=== PATIENT | female | born 1945 | race Caucasian/White ===

== ENCOUNTER 2016-08-04 14:56 | Emergency (ER) | payer MEDICARE, MEDICAID ==
[~2016-08-04] VITALS: Ht 160 cm; Wt 59.5 kg
[2016-08-04 15:16] VITALS: Ht 160 cm; Wt 59.5 kg
[2016-08-04] MEDS ORDERED: LEVO25TA50 PO (16:21)
[2016-08-04] MEDS ORDERED: ALLO100T PO (16:21)
[2016-08-04] MEDS ORDERED: ALBUTEROL 0.5% (NEB) 2.5 MG/0.5 ML AMP INH STA (16:21)
[2016-08-04] MEDS ORDERED: SOD CHLORIDE 0.9% 1,000 ML IV STA (16:21)
[2016-08-04] MEDS ORDERED: LEVO500T10 PO (16:22)
[2016-08-04] MEDS ORDERED: METO-429 PO (16:24)
[2016-08-04] MEDS ORDERED: FURO40TA4 PO (16:25)
[2016-08-04] MEDS ORDERED: APIX5TAB PO (16:25)
--- NOTE | 2016-08-04 17:23 | RADRPT ---
PROCEDURE: XR Chest. CLINICAL INDICATION: Shortness of breath. TECHNIQUE: Single frontal view. COMPARISON: None. FINDINGS: There is interstitial disease bilaterally consistent with pulmonary edema. The lungs are otherwise clear. The heart is enlarged. There is calcification in the aorta consistent with atherosclerosis. There is no pleural effusion. There is no pneumothorax. IMPRESSION: 1. Pulmonary edema. 2. Cardiomegaly and atherosclerosis. 3. Otherwise normal chest x-ray. RPTAT: QQ .Alexey Velazquez MD, MD Date Time Electronically viewed and signed by .Alexey Velazquez MD, MD on 08/04/2016 17:22 .R/
[2016-08-04 17:36] LABS: BASOPHIL # 0.1 10^3/ul (0.0-0.1); BASOPHILS % 1.2 % (0.0-2.0); EOSINOPHILS # 0.1 10^3/ul (0.0-0.5); EOSINOPHILS % 0.9 % (0.0-7.0); HEMATOCRIT 28.7 % (37.0-47.0); HEMOGLOBIN 9.4 g/dl (12.0-16.0); LYMPHOCYTES # 1.2 10^3/ul (0.8-2.9); LYMPHOCYTES % 18.1 % (15.0-51.0); MEAN CORPUSCULAR HEMOGLOBIN 29.2 pg (29.0-33.0); MEAN CORPUSCULAR HGB CONC 32.9 g/dl (32.0-37.0); MEAN CORPUSCULAR VOLUME 88.6 fl (82.0-101.0); MONOCYTE # 0.5 10^3/ul (0.3-0.9); MONOCYTES % 6.8 % (0.0-11.0); NEUTROPHIL # 4.9 10^3/ul (1.6-7.5); PLATELET COUNT 148 10^3/UL (140-440); RED BLOOD COUNT 3.23 10^6/ul (4.20-5.40); RED CELL DISTRIBUTION WIDTH 19.2 % (11.5-14.5); UNCORRECTED WBC 6.7 10^3/ul (4.8-10.8); WHITE BLOOD COUNT 6.7 10^3/ul (4.8-10.8)
[2016-08-04 17:41] LABS: INR 1.2; PARTIAL THROMBOPLASTIN TIME 40.6 Sec (25.0-35.0); PROTIME 15.3 Sec (12.2-14.2); PT RATIO 1.2
[2016-08-04 17:43] LABS: ALBUMIN 4.2 g/dl (3.3-4.9); CHLORIDE 99 mmol/L (97-110)
[2016-08-04 17:44] LABS: POTASSIUM 4.4 mmol/L (3.5-5.1); SODIUM 141 mmol/L (135-144)
[2016-08-04 17:46] LABS: ALBUMIN/GLOBULIN RATIO 1.13; ALKALINE PHOSPHATASE 176 IU/L (42-121); ANION GAP 20 (8-16); ASPARTATE AMINO TRANSFERASE 33 IU/L (15-46); BILIRUBIN,INDIRECT 0.6 mg/dl (0-1.1); BILIRUBIN,TOTAL 0.6 mg/dl (0.2-1.3); CARBON DIOXIDE 26 mmol/L (21-31); CREATININE 0.91 mg/dl (0.44-1.00); TOTAL PROTEIN 7.9 g/dl (6.1-8.1)
[2016-08-04 17:47] LABS: ALANINE AMINOTRANSFERASE 35 IU/L (13-69); BLOOD UREA NITROGEN 35 mg/dl (7-20); CALCIUM 8.7 mg/dl (8.4-10.2); GLUCOSE 106 mg/dl (70-220)
[2016-08-04 17:56] LABS: B-TYPE NATRIURETIC PEPTIDE 477 PG/ML (0-125)
[2016-08-04 18:00] LABS: TROPONIN-I < 0.010 ng/ml (0.00-0.12)
[2016-08-04] MEDS ORDERED: IOHEXOL 300MG/ML 150 ML BTL ONE (18:13)
[2016-08-04] MEDS ORDERED: SOD CHLORIDE 0.9% 100 ML ONE (18:13)
[2016-08-04 18:21] LABS: CONDITION 1; LH ANALYZER COMMENTS 1; SUSPECT 1
[2016-08-04] MEDS ORDERED: FUROSEMIDE 40 MG INJ IV ONE (18:30)
--- NOTE | 2016-08-04 20:37 | ERD ---
ER Documentation Chief Complaint Date/Time DATE: 08/04/16 TIME: 20:33 Chief Complaint cough x 2 weeks (KASIETORREY) HPI Patient is a 71-year-old female who presents with cough, congestion, and shortness of breath. The cough is productive of clear mucus. She denies any chest pain, fever, sore throat, or otalgia. She does complain of some mild dyspnea on exertion with orthopnea. She denies any edema, or calf pain. She denies any chest trauma, recent travel, or hemoptysis. She saw her primary care physician who gave her Levaquin. She is taking the Levaquin 2 days without any improvement in her symptoms. (TORREY JARAMILLO) ROS All systems reviewed and are negative except as per history of present illness. (TORREY JARAMILLO) Medications Home Meds Active Scripts Benzonatate* (Tessalon Perle*) 100 Mg Capsule, 100 MG PO Q8H Y for COUGH, #14 CAP Prov:LUCINA PALOMINO DO 08/05/16 Hydrocodone-Chlorpheniramine Polis* (Hydrocodone-Chlorpheniramine Polis*) 10-8MG /5ML Stephany.er.12h, 5 ML PO Q12H Y for COUGH, #60 ML 0 Refills Prov:RADHA JARAMILLOA 08/04/16 Benzonatate* (Tessalon Perle*) 100 Mg Capsule, 100 MG PO Q8H Y for COUGH, #30 CAP 0 Refills Prov:RADHA JARAMILLOA 08/04/16 Potassium Chloride* (K-Dur*) 10 Meq Tab.prt.sr, 10 MEQ PO DAILY, #20 TAB 0 Refills Prov:TORREY JARAMILLO 08/04/16 Furosemide* (Lasix*) 20 Mg Tablet, 20 MG PO DAILY for 7 Days, #20 TAB 0 Refills Prov:KASIETORREY 08/04/16 Reported Medications Apixaban* (Eliquis*) 5 Mg Tablet, 5 MG PO BID, TAB 08/04/16 Furosemide* (Furosemide*) 40 Mg Tablet, 40 MG PO DAILY, TAB 08/04/16 Metoprolol Tartrate* (Lopressor*) 50 Mg Tab, 50 MG PO BID, #60 TAB 08/04/16 Levofloxacin* (Levofloxacin*) 500 Mg Tablet, 500 MG PO DAILY, TAB STARTED 08-03-16 FOR 5 DAYS 08/04/16 Allopurinol* (Allopurinol*) 100 Mg Tablet, 100 MG PO DAILY, TAB 08/04/16 Levothyroxine Sodium* (Levoxyl*) 25 Mcg Tablet, 25 MCG PO BEFORE BREAKFAST, #30 TAB 08/04/16 Allergies Allergies: Coded Allergies: No Known Allergy (Unverified , 08/04/16) PMhx/Soc History of Surgery: Yes (abd hernia repair) Anesthesia Reaction: No Hx Neurological Disorder: No Hx Respiratory Disorders: No Hx Cardiac Disorders: Yes (CHF, HTN, AFIB) Hx Psychiatric Problems: No Hx Miscellaneous Medical Probl: Yes (FIBROMYALGIA) Hx Alcohol Use: No Hx Substance Use: No Hx Tobacco Use: No Smoking Status: Never smoker (TORREY JARAMILLO) FmHx Family History: No diabetes (TORREY JARAMILLO) Physical Exam Vitals Vital Signs Date Time Temp Pulse Resp B/P Pulse Ox O2 Delivery O2 Flow Rate FiO2 08/04/16 23:53 81 22 99 21 08/04/16 23:30 94 22 110/76 100 Room Air 08/04/16 22:35 100 18 98/83 100 Room Air 08/04/16 21:00 85 18 140/59 100 Room Air 08/04/16 20:30 85 21 111/65 100 Room Air 08/04/16 19:57 83 18 77/65 100 Room Air 08/04/16 17:41 78 20 110/70 98 Room Air 08/04/16 16:53 79 20 99 21 08/04/16 15:16 98.3 74 20 122/57 99 (LUCINA PALOMINO DO) Physical Exam Const: Well-developed well-nourished female sitting on the bed with no respiratory distress noted Head: Atraumatic Eyes: Normal Conjunctiva ENT: Normal External Ears, Nose and Mouth. Neck: Full range of motion..~ No meningismus. Resp: Clear to auscultation bilaterally, with no rales or crackles noted. Patient is not tachypneic nor does she have any retractions, nasal flaring, or prolonged expiratory phase noted. She speaks in full sentences without difficulty. Cardio: Regular rate and rhythm, no murmurs Abd: Soft, non tender, non distended. Normal bowel sounds Skin: No petechiae or rashes Back: No midline or flank tenderness Ext: No cyanosis, or edema Neur: Awake and alert oriented 3, GCS equals 15 Psych: Normal Mood and Affect (TORREY JARAMILLO) Result Diagram: 08/04/16 1705 08/04/16 1705 Results 24 hrs Laboratory Tests Test 08/04/16 17:05 08/04/16 21:30 Activated Partial Thromboplast Time 40.6Sec Alanine Aminotransferase (ALT/SGPT) 35IU/L Albumin 4.2g/dl Albumin/Globulin Ratio 1.13 Alkaline Phosphatase 176IU/L Anion Gap 20 Aspartate Amino Transf (AST/SGOT) 33IU/L B-Type Natriuretic Peptide 477PG/ML Basophils # 0.110^3/ul Basophils % 1.2% Blood Morphology Comment Blood Urea Nitrogen 35mg/dl Calcium Level 8.7mg/dl Carbon Dioxide Level 26mmol/L Chloride Level 99mmol/L Creatinine 0.91mg/dl Differential Comment AUTO w/SCAN Direct Bilirubin 0.00mg/dl Eosinophils # 0.110^3/ul Eosinophils % 0.9% Globulin 3.70g/dl Glucose Level 106mg/dl Hematocrit 28.7% Hemoglobin 9.4g/dl INR International Normalized Ratio 1.20 Indirect Bilirubin 0.6mg/dl Lactic Acid Level 3.2mmol/L 1.1mmol/L Lymphocytes # 1.210^3/ul Lymphocytes % 18.1% Mean Corpuscular Hemoglobin 29.2pg Mean Corpuscular Hemoglobin Concent 32.9g/dl Mean Corpuscular Volume 88.6fl Mean Platelet Volume 9.0fl Monocytes # 0.510^3/ul Monocytes % 6.8% Neutrophils # 4.910^3/ul Neutrophils % 73.0% Nucleated Red Blood Cells # 0.010^3/ul Nucleated Red Blood Cells % 0.0/100WBC Platelet Count 03796^3/UL Potassium Level 4.4mmol/L Prothrombin Time 15.3Sec Prothrombin Time Ratio 1.2 Red Blood Count 3.2310^6/ul Red Cell Distribution Width 19.2% Sodium Level 141mmol/L Total Bilirubin 0.6mg/dl Total Protein 7.9g/dl Troponin I < 0.010ng/ml White Blood Count 6.710^3/ul Current Medications Medications (Trade) Dose Ordered Sig/Kailyn Route PRN Reason Start Time Stop Time Status Last Admin Dose Admin Sodium Chloride (NS) 1,000 ml @ 1,000 mls/hr Q1H STAT IV 08/04/16 16:21 08/04/16 17:20 DC 08/04/16 17:43 Albuterol (Proventil 0.5% (Neb)) 5 mg ONCE STAT INH 08/04/16 16:21 08/04/16 16:25 DC 08/04/16 16:49 IV Flush 10 ml 10 ml STK-MED ONCE .ROUTE 08/04/16 18:13 08/04/16 18:14 DC 08/04/16 22:00 Sodium Chloride (NS) 100 ml @ ud STK-MED ONCE .ROUTE 08/04/16 18:13 08/04/16 18:14 DC 08/04/16 22:00 Iohexol (Omnipaque 300mg/ ml) 150 ml STK-MED ONCE .ROUTE 08/04/16 18:13 08/04/16 18:14 DC 08/04/16 22:00 Furosemide (Lasix) 60 mg ONCE ONCE IV 08/04/16 18:30 08/04/16 18:31 DC 08/04/16 20:26 Albuterol (Proventil 0.5% (Neb)) 2.5 mg ONCE STAT HHN 08/04/16 23:32 08/04/16 23:34 DC 08/04/16 23:52 Azithromycin (Zithromax) 500 mg ONCE ONCE PO 08/05/16 04:00 08/05/16 04:00 DC (LUCINA PALOMINO DO) Procedures/MDM EKG: Rate/Rhythm: Normal Sinus Rhythm at 80 bpm QRS, ST, T-waves: No changes consistent w/ acute ischemia Impression: No evidence of ischemia or arrhythmia (TORREY JARAMILLO) I was signed out this patient following her CT scan. Patient with a CT only significant for mild bronchitis. Patient is currently being treated for bronchitis with Levaquin and is on her third day. I have instructed her to continue the Levaquin dose that her primary care doctor prescribed her. I'll maybe a mentioned from the radiologist on her chest x-ray is not seen on the CAT scan. She has had a cough and mild dyspnea. She does have a history of congestive heart failure but does not appear to be in active congestive heart failure now with a BNP of only 477. She is not an acute cardiac syndrome either the negative troponin and nonischemic EKG. No signs of sepsis. She's being discharged with various medications and the doctors are in the ER, Dr. Jaramillo as planned. CT chest interpretation: Mild bronchitis with no other acute process. Thyromegaly and cardiomegaly also is seen. No infiltrate, no pulmonary edema, no pneumothorax, no fractures (LUCINA PALOMINO DO) Departure Diagnosis: Primary Impression: CHF (congestive heart failure) Congestive heart failure type: unspecified congestive heart failure type Congestive heart failure chronicity: acute Qualified Code: I50.9 - Acute congestive heart failure, unspecified congestive heart failure type Additional Impressions: Cough Dyspnea Dyspnea type: shortness of breath Qualified Code: R06.02 - Shortness of breath TORREY JARAMILLO Aug 04, 2016 20:37 LUCINA PALOMINO DO Aug 05, 2016 04:05
[2016-08-04] MEDS ORDERED: POTA10TA37 PO (21:03)
[2016-08-04] MEDS ORDERED: FURO20TA PO (21:03)
[2016-08-04] MEDS ORDERED: HYDR473S12 PO (21:04)
[2016-08-04] MEDS ORDERED: BENZ100C70 PO (21:04)
--- NOTE | 2016-08-04 22:22 | RADRPT ---
PROCEDURE: CT Chest with contrast. CLINICAL INDICATION: Shortness of breath. TECHNIQUE: Helical axial sections were obtained through the chest with intravenous contrast enhanc ement. 100 ml of Omnipaque-300 was used for the intravenous contrast. Coronal and sagittal reform atted images were obtained from the axial source images. Total exam DLP is 217.92 mGy-cm. CTDIvol i s 6.21 mGy. One or more of the following dose reduction techniques were used: Automated exposure co ntrol, adjustment of the mA and/or kV according to patient size, use of iterative reconstruction arturo hnique. COMPARISON: None FINDINGS: The lungs are clear with no airspace or interstitial disease. There is mild bronchial wall thickenin g bilaterally in the lower lung zones consistent with bronchitis. There is no pulmonary nodule or mass lesion. There is no mediastinal or hilar lymphadenopathy or mass. There is no axillary, supraclavicular, or internal mammary lymphadenopathy. The thoracic aorta is not dilated. Calcification is present in the aorta consistent with atheroscle rosis. There is enlargement of the central pulmonary arteries consistent with pulmonary artery hyper tension. The heart is enlarged. There is coronary artery calcification. There is no pleural effusion or pericardial effusion. Images through the upper abdomen demonstrate normal visualized portions of the liver. The spleen is enlarged. The osseous structures are grossly normal with no fracture or lytic lesion. IMPRESSION: 1. Mild bronchitis bilaterally in the lower lung zones. 2. Atherosclerosis. 3. Pulmonary artery hypertension. 4. Cardiomegaly. 5. Coronary artery calcification. 6. Splenomegaly. 7. Otherwise unremarkable study. RPTAT: QQ .Alexey Velazquez MD, MD Date Time Electronically viewed and signed by .Alexey Velazquez MD, MD on 08/04/2016 22:21 .R/
[2016-08-04] MEDS ORDERED: ALBUTEROL 0.5% (NEB) 2.5 MG/0.5 ML AMP HHN STA (23:32)
[2016-08-05] MEDS ORDERED: BENZ100C70 PO (03:59)
[2016-08-05] MEDS ORDERED: AZITHROMYCIN 250 MG TAB PO ONE (04:00)
[2016-08-05 04:07] VITALS: BP 108/65; PULSE 85; RESP 22
== END 2016-08-05 06:34 | disposition home or self-care (01) ==
LOC: E/R 14:56
DX: I50.9 Heart failure, unspecified (principal); R05 Cough; I10 Essential (primary) hypertension; Z79.01 Long term (current) use of anticoagulants
CPT/HCPCS: 36415; 71010; 71260; 80053; 83605; 83880; 84484; 85025; 85610; 85730; 87400; 93005; 94640; 94664; 96374; 99285; J1940; J7030; Q9967